=== PATIENT | female | born 1945 | race Caucasian/White ===

== ENCOUNTER 2017-07-01 11:48 | Outpatient (CLI) | payer MEDICARE | END 2017-07-01 11:49 | disposition home or self-care (01) | LOC: BICMAMMO 11:48 | PROVIDERS: ATTEND Internal Medicine | DX: Z12.31 Encounter for screening mammogram for malignant neoplasm of breast (principal) | CPT/HCPCS: 77063; 77067 ==

== ENCOUNTER 2017-07-22 08:34 | Outpatient (CLI) | payer MEDICARE ==
[2017-07-22] MEDS ORDERED: Iopamidol 370 76% 100 ML VIAL ONE (16:53)
== END 2017-07-22 08:35 | disposition home or self-care (01) ==
LOC: BICCT 08:34
PROVIDERS: ATTEND Urology
DX: N39.0 Urinary tract infection, site not specified (principal); R31.29 Other microscopic hematuria; R33.9 Retention of urine, unspecified; N28.89 Other specified disorders of kidney and ureter
CPT/HCPCS: 74178

== ENCOUNTER 2017-09-22 13:49 | Outpatient (CLI) | payer MEDICARE | END 2017-09-22 13:50 | disposition home or self-care (01) | LOC: BICRAD 13:49 | PROVIDERS: ATTEND Internal Medicine | DX: M18.11 Unilateral primary osteoarthritis of first carpometacarpal joint, right hand (principal); S62.625G Displaced fracture of middle phalanx of left ring finger, subsequent encounter for fracture with delayed healing; M19.042 Primary osteoarthritis, left hand; M47.894 Other spondylosis, thoracic region; M41.9 Scoliosis, unspecified | CPT/HCPCS: 71046; 72072 ==

== ENCOUNTER 2017-10-09 09:39 | Outpatient (CLI) | payer MEDICARE | END 2017-10-09 09:40 | disposition home or self-care (01) | LOC: BICMRI 09:39 | PROVIDERS: ATTEND Internal Medicine | DX: M51.14 Intervertebral disc disorders with radiculopathy, thoracic region (principal); M19.90 Unspecified osteoarthritis, unspecified site | CPT/HCPCS: 72146 ==

== ENCOUNTER 2017-10-16 08:56 | Outpatient (CLI) | payer MEDICARE ==
--- NOTE | 2017-10-16 11:08 | ULT ---
GALLBLADDER ULTRASOUND: HISTORY: Right upper quadrant pain. FINDINGS: Real-time imaging of the right upper quadrant demonstrates a normal-appearing gallbladder. The commo n duct is 4 mm. Visualized liver parenchyma shows no focal abnormlaities. The pancreas is partially obscured. The right kidney is normal in size and not obstructed. IMPRESSION: Unremarkable gallbladder ultrasound. POS: [facility]
== END 2017-10-16 08:57 | disposition home or self-care (01) ==
LOC: SCSULT 08:56
PROVIDERS: ATTEND Internal Medicine
DX: R10.11 Right upper quadrant pain (principal); M25.511 Pain in right shoulder
CPT/HCPCS: 76705

== ENCOUNTER 2017-11-12 12:15 | Outpatient (CLI) | payer MEDICARE ==
[2017-11-12] MEDS ORDERED: Sodium Chloride 0.9% 10 ML ONE (14:28)
--- NOTE | 2017-11-12 17:54 | NM ---
HIDA SCAN: 11/12/17 INDICATION: Right upper quadrant pain. Rule out cholecystitis. RADIOPHARMACEUTICAL: 5.2 millicuries technetium 99m Mebrofenin IV of radiopharmaceutical initial dose. 1.8 millicuries darlene hnetium 99m Mebrofenin IV as secondary dose. PHARMACEUTICAL: 2 mg morphine sulfate IV. TECHNIQUE: Initial 60 minutes of imaging was obtained after administration of 5.2 millicuries technetium 99m Meb rofenin IV. There was nonvisualization of the gallbladder. There was administration of 2 mg of IV mor phine and redosing of technetium 99m Mebrofenin IV of 1.8 millicuries. An additional 30 minutes of im aging was performed. FINDINGS: There is visualization of bowel activity by the five minute time ania with nonvisualization of gallbl adder activity. Following the administration of 2 mg of IV morphine sulfate and readministration of a n additional 1.8 millicuries of technetium 99m Mebrofenin IV, there is visualization of the gallbladd er. IMPRESSION: Visualization of the gallbladder virtually excludes the presence of cystic duct obstruction. There is no significant obstruction of radiotracer into the bowel to suggest significant common bile duct obs truction. POS: [facility]
== END 2017-11-12 12:16 | disposition home or self-care (01) ==
LOC: NM 12:15
PROVIDERS: ATTEND Internal Medicine
DX: R10.11 Right upper quadrant pain (principal)
CPT/HCPCS: 78227; A9537; A4216; J2270

== ENCOUNTER 2018-07-02 08:57 | Outpatient (CLI) | payer MEDICARE ==
--- NOTE | 2018-07-02 11:18 | BD ---
DEXA SCAN: INDICATION: Osteoporosis screening. COMPARISON: Prior exam dated 04/09/2006. FINDINGS: Lumbar Spine: BMD (g/cm2) L1 0.722 T-Score: -2.4 Z-Score: -0.5 L2 0.834 T-Score: -1.8 Z-Score: 0.4 L3 1.211 T-Score: 1.2 Z-Score: 3.4 L4 1.185 T-Score: 1.1 Z-Score: 3.5 L1-L4 0.985 T-Score: -0.6 Z-Score: 1.6 Femoral Neck: 0.646 T-Score: -1.8 Z-Score: 0.0 Total Femur: 0.844 T-Score: -0.8 Z-Score: 0.8 The bone mineral density of the left total hip region has improved 2.6% from the previous and 3% from the base in 10/13/2012. The FRAX WHO fracture risk assessment tool estimates the 10-year fracture risk for this patient for a major osteoporotic fracture as 18% and for a hip fracture as 3.2%. Impression: Based on WHO criteria, the patient's bone mineral density is considered osteopenic. The patient is a t moderate risk for fracture. The bone mineral density of the left total hip region has improved 3% from the baseline; however, the examination was performed with dissimilar scan types and analysis met hods. POS: [facility]
== END 2018-07-02 08:58 | disposition home or self-care (01) ==
LOC: BICMAMMO 08:57
PROVIDERS: ATTEND Internal Medicine
DX: Z12.31 Encounter for screening mammogram for malignant neoplasm of breast (principal); M85.89 Other specified disorders of bone density and structure, multiple sites
CPT/HCPCS: 77063; 77067; 77080

== ENCOUNTER 2019-07-22 09:29 | Outpatient (CLI) | payer MEDICARE ==
--- NOTE | 2019-07-22 11:41 | MMO ---
Bilateral MAMMO Bilat Screen [facility]. CLINICAL HISTORY: Patient is 74 years old and is seen for screening. The patient has no family history of breast cancer. The patient has no personal history of cancer. VIEWS: The views performed were: bilateral craniocaudal with tomosynthesis and bilateral mediolateral oblique with tomosynthesis. FILMS COMPARED: The present examination has been compared to prior imaging studies performed at [facility] on 06/13/2015, 06/17/2016, 07/01/2017 and 07/02/2018. This study has been interpreted with the assistance of computer-aided detection. MAMMOGRAM FINDINGS: There are scattered fibroglandular densities. Benign calcifications are noted bilaterally. There are no suspicious masses, suspicious calcifications, or new areas of architectural distortion. IMPRESSION: THERE IS NO MAMMOGRAPHIC EVIDENCE OF MALIGNANCY. A ROUTINE FOLLOW-UP MAMMOGRAM IN 1 YEAR IS RECOMMENDED. THE RESULTS OF THIS EXAM WERE SENT TO THE PATIENT. ACR BI-RADS Category 2 - Benign finding MAMMOGRAPHY NOTE: 1. A negative mammogram report should not delay a biopsy if a dominant of clinically suspicious mass is present. 2. Approximately 10% to 15% of breast cancers are not detected by mammography. 3. Adenosis and dense breasts may obscure an underlying neoplasm. Reported by: NEELAM GONCALVES MD Electonically Signed: [id number]
== END 2019-07-22 09:30 | disposition home or self-care (01) ==
LOC: BICMAMMO 09:29
PROVIDERS: ATTEND Internal Medicine
DX: Z12.31 Encounter for screening mammogram for malignant neoplasm of breast (principal)
CPT/HCPCS: 77063; 77067

== ENCOUNTER 2020-10-18 09:52 | Outpatient (CLI) | payer MEDICARE | END 2020-10-18 09:53 | disposition home or self-care (01) | LOC: BICMAMMO 09:52 | PROVIDERS: ATTEND Internal Medicine | DX: Z12.31 Encounter for screening mammogram for malignant neoplasm of breast (principal) | CPT/HCPCS: 77063; 77067 ==

== ENCOUNTER 2022-05-23 07:55 | Outpatient (CLI) | payer MEDICARE | END 2022-05-23 07:56 | disposition home or self-care (01) | LOC: NM 07:55 | DX: R10.13 Epigastric pain (principal); R11.0 Nausea; K31.84 Gastroparesis | CPT/HCPCS: 78264; A9541 ==